=== PATIENT | female | born 1985 | race Caucasian/White ===

== ENCOUNTER 2018-02-14 07:38 | Day surgery (SDC) | payer BC ==
[~2018-02-14 07:38] MED LIST: Lactated Ringers 1,000 ML IV SCH
[2018-02-14] MEDS ORDERED: Acetaminophen/HYDROcodone 325-5 MG Tab PO PRN (08:00)
[2018-02-14] MEDS ORDERED: ceFAZolin 2 GM in Premix Bag 1 BAG IV SCH (08:00)
--- NOTE | 2018-02-14 09:26 | PCM.PREANE ---
Preanesthetic Assessment - Procedure Proposed Procedure: left knee scope - Anesthesia/Transfusion/Family Hx Anesthesia History: Prior Anesthesia Without Reaction Family History of Anesthesia Reaction: No Transfusion History: No Prior Transfusion(s) Intubation History: Unknown - Review of Systems General: No Symptoms Pulmonary: No Symptoms Cardiovascular: No Symptoms Gastrointestinal: No Symptoms Neurological: No Symptoms, Gait Disturbance (due to knee pain) Other: Reports: None - Physical Assessment NPO Status Date: 02/13/18 NPO Status Time: 23:00 Height: 5 ft 7 in Weight: 200 lb ASA Class: 1 Mental Status: Alert & Oriented x3 Airway Class: Mallampati = 2 Dentition: Reports: Normal Dentition Thyro-Mental Finger Breadths: 3 Mouth Opening Finger Breadths: 2 (reluctant) Lungs: Clear to Auscultation, Normal Respiratory Effort Cardiovascular: Regular Rate, Regular Rhythm, No Murmurs - Lab Values: Laboratory Last Values Urine HCG, Qual NEGATIVE (NEGATIVE) 02/14/18 08:10 - Allergies Allergies/Adverse Reactions: Allergies Allergy/AdvReac Type Severity Reaction Status Date / Time No Known Allergies Allergy Verified 02/09/18 07:39 - Blood Blood Available: No Product(s) Available: None - Anesthesia Plan Pre-Op Medication Ordered: None - Acknowledgements Anesthesia Type Planned: General Anesthesia (LMA) Pt an Appropriate Candidate for the Planned Anesthesia: Yes Alternatives and Risks of Anesthesia Discussed w Pt/Guardian: Yes Pt/Guardian Understands and Agrees with Anesthesia Plan: Yes PreAnesthesia Questionnaire HEENT History: Reports: None Gastrointestinal History: Reports: GERD, Other (See Below) Other Gastrointestinal History: occasional reflux Musculoskeletal History: Reports: Arthritis, Fracture Other Musculoskeletal History: hx of "fx knee cap" Endocrine/Metabolic History: Reports: Obesity/BMI 30+ - Past Surgical History Head Surgeries/Procedures: Reports: None HEENT Surgical History: Reports: LASIK Musculoskeletal Surgical History: Reports: Arthroscopic Knee - SUBSTANCE USE Smoking Status *Q: Never Smoker Recreational Drug Use History: No - HOME MEDS Home Medications: Home Meds . [No Known Home Meds] 02/09/18 [History] - CURRENT (IN HOUSE) MEDS Current Meds: Current Medications Hydrocodone Bitart/Acetaminophen ([place] 325-5 Mg) 1 - 2 tab PO Q4H PRN PRN Reason: Pain Cefazolin Sodium/Dextrose 2 gm (/ Premix) 50 mls @ 100 mls/hr IV ONCALL TARI Lactated Ringer's (Ringers, Lactated) 1,000 mls @ 100 mls/hr IV ASDIRECTED [facility] Last Admin: 02/14/18 08:35 Dose: 100 mls/hr
[2018-02-14] MEDS ORDERED: fentaNYL 250 MCG/5 ML SDV ONE (09:41)
[2018-02-14] MEDS ORDERED: Ondansetron 4 MG/2 ML SDV ONE (09:41)
[2018-02-14] MEDS ORDERED: Propofol 200 MG/20 ML SDV ONE (09:41)
[2018-02-14] MEDS ORDERED: Midazolam 1 MG/ML 2 ML SDV ONE (09:41)
[2018-02-14] MEDS ORDERED: Lidocaine 2% 5 ML SDV ONE (09:41)
[2018-02-14] MEDS ORDERED: Lidocaine 1% 20 ML MDV ONE (09:52)
[2018-02-14] MEDS ORDERED: fentaNYL 100 MCG/2 ML SDV IVPUSH PRN (10:32)
[2018-02-14] MEDS ORDERED: Ketorolac 30 MG/ML SDV ONE (10:39)
--- NOTE | 2018-02-14 11:24 | PCM.OPNOTE ---
- General Post-Op/Procedure Note Date of Surgery/Procedure: 02/14/18 Operative Procedure(s): R knee arthroscopy with PLM and lateral release Post-Op Diagnosis: DJD R knee, partial lateral menisectomy Anesthesia Technique: General LMA Primary Surgeon: Geovanna Bejarano [employer] Kitchen: Mere J[employer] Kitchen: Santos Skinner in mLs: 5 Condition: Good Free Text/Narrative:: tt=46 min #[id number]
--- NOTE | 2018-02-14 11:48 | PCM.POSTAN ---
POST ANESTHESIA ASSESSMENT - MENTAL STATUS Mental Status: Alert, Oriented - RESPIRATORY Respiratory Status: Respiratory Rate WNL, Airway Patent, O2 Saturation Stable - CARDIOVASCULAR CV Status: Pulse Rate WNL, Blood Pressure Stable - GASTROINTESTINAL GI Status: No Symptoms - POST OP HYDRATION Hydration Status: Adequate & Stable
--- NOTE | 2018-02-14 13:11 | OR ---
SURGEON: Geovanna Bejarano MD DATE OF PROCEDURE: 02/14/2018 PREOPERATIVE DIAGNOSES: 1. Degenerative joint disease, right knee. 2. Right knee lateral meniscus tear. POSTOPERATIVE DIAGNOSES: 1. Degenerative joint disease, right knee. 2. Right knee lateral meniscus tear. PROCEDURE: Right knee arthroscopy with partial lateral meniscectomy and arthroscopic lateral release. ASSISTANTS: Mere Jara PA-C and Santos Vazquez MD, PGY2. ANESTHESIA: General. ESTIMATED BLOOD LOSS: 5 mL. TOURNIQUET TIME: 46 minutes. COMPLICATIONS: None. DVT PROPHYLAXIS: Not indicated. IMPLANTS USED: None. BRIEF HISTORY: Jamila is a 32-year-old female who previously underwent surgical treatment for a right knee patella fracture. She has had subsequent surgery since that time. Her clinical exam did show significant chondromalacia along the patellofemoral joint. An MRI did show degenerative changes along the patellofemoral joint as well as lateral compartment along with a lateral meniscus tear. Due to her lack of response to conservative treatment, I did recommend surgical intervention. The risks and goals of procedure were discussed with the patient and were documented preoperatively. She agreed to proceed. DESCRIPTION OF PROCEDURE: Patient was properly identified and brought to the operating room. She was transferred from the OR cart and placed on the operating room table in a supine position. General anesthesia was administered. After adequate anesthesia was obtained, a well-padded tourniquet was applied to the right lower extremity. The right lower extremity was then prepped in standard fashion using ChloraPrep solution. It was then sterilely draped. A time-out was performed to ensure correct site and procedure. Preoperative antibiotics were given. The surgical site had been marked preoperatively. An Esmarch was used to exsanguinate the right lower extremity and the tourniquet was inflated to 250 mmHg. A lateral portal arthrotomy was made. Blunt trocar and cannula were introduced into the suprapatellar pouch. Camera, inflow, and outflow were assembled. The suprapatellar pouch showed no significant synovitis. The patellofemoral joint was visualized. Extensive grade 3 degenerative changes were noted along the undersurface of the patella. The trochlear groove also showed a strip measuring approximately 5 mm of grade 3 chondromalacia along the lateral aspect of the trochlea. The knee was taken through a range of motion. The patella appeared to be tracking laterally. I then extended down the lateral medial gutter. No loose bodies were identified. I then entered the medial compartment. A medial portal arthrotomy was established. A blunt probe was inserted. The meniscus was extensively probed and it was found to be intact. Diffuse grade 2 chondromalacia was noted along the medial tibial plateau as well as the medial femoral condyle. I then entered the notch. Both the ACL and PCL were visualized and probed and found to be intact. A portion of the lateral meniscus appeared to be impinging within the notch. I then entered the lateral compartment. Degenerative fraying and tearing of the anterior horn of the lateral meniscus was noted. Using a combination of biters and shaver, this was resected back to a stable remnant. The posterior horn of lateral meniscus appeared intact. She had extensive grade 3 degenerative changes along the lateral tibial plateau. Grade 2 chondromalacia was noted along the lateral femoral condyle. A chondroplasty of the lateral tibial plateau was performed to remove any loose fragments of cartilage. I then re-entered the patellofemoral joint. The knee was again taken through a range of motion and with the lateral tilt to the patella, I felt that this was causing abnormal wear along the lateral femoral condyle. I elected to proceed with a lateral release. Using the 90 degree hook probe electrocautery unit, a lateral release was performed. The knee was again taken through a range of motion and the patella appeared to be more central with less wear along the lateral femoral condyle. The instruments were then removed from the knee. The portal sites were closed with 3-0 nylon. Lidocaine 1% was injected along the portal tract. Xeroform gauze was placed over the wound and a bulky dressing was applied. The tourniquet was then deflated. She was awakened from her anesthetic and transferred back to the operating room cart. She was brought to recovery room in stable condition. All needle and sponge counts were correct. TEN / CASSIE /[id number]
--- NOTE | 2018-02-14 13:28 | PCM48HPAN ---
Post Anesthesia Note - EVALUATION WITHIN 48HRS OF ANESTHETIC Vital Signs in Normal Range: Yes Patient Participated in Evaluation: Yes Respiratory Function Stable: Yes Airway Patent: Yes Cardiovascular Function Stable: Yes Hydration Status Stable: Yes Pain Control Satisfactory: Yes Nausea and Vomiting Control Satisfactory: Yes Mental Status Recovered: Yes Resp Rate: 11
== END 2018-02-14 13:30 | disposition home or self-care (01) ==
LOC: MW.SDS 07:38
PROVIDERS: ATTEND Orthopaedic Surgery
DX: M23.241 Derangement of anterior horn of lateral meniscus due to old tear or injury, right knee (principal); M94.29 Chondromalacia, multiple sites; M17.0 Bilateral primary osteoarthritis of knee; E66.9 Obesity, unspecified; Z68.31 Body mass index [BMI] 31.0-31.9, adult; M25.461 Effusion, right knee; M65.861 Other synovitis and tenosynovitis, right lower leg; K21.9 Gastro-esophageal reflux disease without esophagitis; Z79.899 Other long term (current) drug therapy
CPT/HCPCS: 29873; 29881; 81025; 88304; A9270; J0690; J1885; J2250; J2405; J3010; J7120; 01400; J2704